=== PATIENT | male | born 1955 | race Caucasian/White ===

== ENCOUNTER → 2016-10-29 | Outpatient (CLI) | payer SELFPAY ==
[~2016-10-29] MED LIST: ALLP100T PO; DILT180C82 PO; FLT05NA16 NSEACH; HCT25T PO; LOSA100T16 PO; [UNRECOGNIZED DRUG - REMARK]
[2016-10-29 11:49] LABS: ALANINE AMINOTRANSFERASE 38 U/L (0-55); ALBUMIN 4.3 G/DL (3.2-4.5); ANION GAP 10 MMOL/L (5-14); ASPARTATE AMINO TRANSFERASE 27 U/L (5-34); BILIRUBIN,TOTAL 1.3 MG/DL (0.1-1.0); BLOOD UREA NITROGEN 22 MG/DL (7-18); BUN/CREATININE RATIO 23; CALCIUM 9.5 MG/DL (8.5-10.1); CARBON DIOXIDE 23 MMOL/L (21-32); CHLORIDE 105 MMOL/L (98-107); CREATININE SERUM 0.95 MG/DL (0.60-1.30); GFR ESTIMATED > 60; GLUCOSE 93 MG/DL (70-105); POTASSIUM 4.3 MMOL/L (3.6-5.0); SODIUM 138 MMOL/L (135-145); TOTAL PROTEIN 7.9 G/DL (6.4-8.2)
[2016-10-29] MEDS: IOHEXOL 350 MG/ML 100 ML (OMNIPAQUE 350) VIAL IV ONE (12:09)
[2016-10-29] MEDS: NS 100 ML (IVPB) BAG IV ONE (12:10)
[2016-10-29] MEDS: CATHETER FLUSH 10 ML SYR IV PRN (12:10)
--- NOTE | 2016-10-29 13:10 | Diagnostic Imaging Report ---
PROCEDURE: CT head with and without contrast. TECHNIQUE: Multiple contiguous axial images were obtained through the brain before and after the administration of intravenous contrast. INDICATION: Headache. 80 mL of Omnipaque 350 is administered intravenously. FINDINGS: The unenhanced phase demonstrates no intracranial hemorrhage. The brain parenchyma demonstrates no edema or mass effect. There is preserved suggs-white matter differentiation. No enhancing mass in the brain or extra-axial space is seen. No ventriculomegaly. The calvarium, and visualized portions of the paranasal sinuses and orbits appear grossly unremarkable. IMPRESSION: Unremarkable exam. No enhancing mass. Dictated by: Dictated on workstation # [id number]
== END | disposition home or self-care (01) ==
LOC: RAD 10:59
PROVIDERS: ATTEND Nurse Practitioner Community Health
DX: R51 Headache (principal)
CPT/HCPCS: 36415; 70470; 80053

== ENCOUNTER → 2020-09-16 | Outpatient (CLI) | payer MEDICARE ==
--- NOTE | 2020-09-16 16:01 | Diagnostic Imaging Report ---
INDICATION: 65-year-old male with osteopenia. COMPARISON: None available. FINDINGS: AP Spine L1-L4: [BMD (g/cm2): 1.066] [T-Score: -1.4] [Z-Score: -1.3] [BMD Previous: na] [BMD % Change: na] LT Hip Neck: [BMD (g/cm2): 0.0903] [T-Score: -1.3] [Z-Score: -0.4] LT Hip Total: [BMD (g/cm2):1.017] [T-Score:-0.6] [Z-Score: -0.2] [BMD Previous: na] [BMD % Change: na] RT Hip Neck: [BMD (g/cm2):0.898] [T-Score:-1.3] [Z-Score:-0.4] RT Hip Total: [BMD (g/cm2):1.004] [T-score:-0.7] [Z-Score:-0.3] [BMD Previous:na] [BMD % Change:na] *Indicates significant change from prior examination based on 95% confidence level. World Health Organization criteria for BMD interpretation classify patients as Normal (T-score at or above -1.0), Osteopenic (T-score between -1.0 and -2.5) or Osteoporotic (T-score at or below -2.5). LIMITATIONS AND MODIFICATION: None. FRACTURE RISK (FRAX SCORE): The ten year probability of (%): Major Osteoporotic Fracture: [5.9] Hip Fracture: [0.9] IMPRESSION: 1. Osteopenia (Low bone mass). 2. Baseline examination. 3. See below National Osteoporosis Foundation guidelines on when to potentially initiate pharmacologic therapy. Based on the National Osteoporosis Foundation Guidelines, pharmacologic treatment should be initiated in any of the following, unless clinical conditions suggest otherwise: * Any patient with prior fragility fracture of the hip or vertebrae. A spine fracture indicates 5X risk for subsequent spine fracture and 2X risk for subsequent hip fracture. * Osteoporosis (T-score <-2.5). * Postmenopausal women and men age 50 and older with low bone mass/osteopenia (T-score between -1.0 and -2.5) by DXA and 10-year major osteoporotic fracture greater than 20% or a 10-year probability of hip fracture greater than 3%. These fracture risks are supplied above in the FRAX score, if applicable. * Clinician judgement and/or patient preferences may indicate treatment for people with 10-year fracture probabilities above or below these levels. Dictated by: Dictated on workstation # [id number]
== END ==
LOC: RAD 13:07
PROVIDERS: ATTEND Nurse Practitioner Family
DX: M85.80 Other specified disorders of bone density and structure, unspecified site (principal); Z91.89 Other specified personal risk factors, not elsewhere classified
CPT/HCPCS: 77080

== ENCOUNTER → 2020-09-30 | Outpatient (CLI) | payer MEDICARE ==
[~2020-09-30] VITALS: Ht 175.3 cm; Wt 89.8 kg
[~2020-09-30] MED LIST changes: +ALLO100T PO; +ASPI-999 PO; +DILT-107 PO; +LOSA100T57 PO; +OMEG-160 PO; +SPIR25TA5 PO
== END | disposition home or self-care (01) ==
LOC: PREOP 05:38
PROVIDERS: ATTEND Surgery
DX: Z01.818 Encounter for other preprocedural examination (principal)

== ENCOUNTER 2020-10-07 07:38 | Day surgery (SDC) | payer MEDICARE, MEDICAID ==
[~2020-10-07] VITALS: Ht 175 cm; Wt 89.0 kg
[2020-10-07] MEDS ORDERED: LACTATED RINGERS 1,000 ML IV ONE (07:46)
[2020-10-07] MEDS ORDERED: LACTATED RINGERS 1,000 ML IV STA (07:47)
[2020-10-07 07:52] VITALS: BP 156/84
[2020-10-07] MEDS ORDERED: MIDAZOLAM 2 MG/2 ML (VERSED) VIAL ONE (08:48)
[2020-10-07] MEDS ORDERED: PROPOFOL INJECTION 0 ML IV ONE (08:48)
[2020-10-07] MEDS ORDERED: PROPOFOL INJECTION 50 ML IV ONE (09:06)
[2020-10-07 09:25] VITALS: BP 125/66
--- NOTE | 2020-10-07 09:27 | Progress Note-Post Operative ---
Post-Operative Progess Note Surgeon (s)/Signal Person (s) Surgeon EVANGELISTA CYR DO Signal Person: na Pre-Operative Diagnosis screening colonoscopy Post-Operative Diagnosis colon polyps Procedure & Operative Findings Date of Procedure 10/07/20 Procedure Performed/Findings colonoscopy c hot bx polypectomy x 2 Anesthesia Type per coding clerks supervisor Estimated Blood Loss Estimated blood loss (mL): minimal Specimens/Packing Specimens Removed ascending and sigmoid colon polyp EVANGELISTA CYR DO October 07, 2020 09:27
--- NOTE | 2020-10-07 09:29 | Discharge Inst-Simple/Standard ---
Discharge Inst-Standard Patient Instructions/Follow Up Plan of Care/Instructions/FU: 2 weeks [facility] Delia Activity as Tolerated: Yes ( ) Discharge Diet: Regular Diet EVANGELISTA CYR DO October 07, 2020 09:29
[2020-10-07 09:30] VITALS: BP 100/55
[2020-10-07 09:35] VITALS: BP 105/66
[2020-10-07 10:00] VITALS: BP 128/94
[2020-10-07 10:05] VITALS: BP 128/94
--- NOTE | 2020-10-07 13:19 | OPERATIVE REPORT ---
DATE OF SERVICE: 10/07/2020 PREOPERATIVE DIAGNOSIS: Screening colonoscopy. POSTOPERATIVE DIAGNOSIS: Colon polyps x2. SURGEON: Evangelista Flannery DO. ANESTHESIA: Per RAND TACKER. PROCEDURE PERFORMED: Colonoscopy with hot biopsy polypectomy x2. INDICATIONS FOR PROCEDURE: The patient is a 65-year-old male needing screening colonoscopy. He understands the risks and benefits and wishes to proceed. Consent was signed in the chart. DESCRIPTION OF PROCEDURE: The patient was taken to the endoscopy suite and placed in the left lateral recumbent position. Timeout was performed. Digital rectal exam was performed. There were no palpable polyps, masses or ulcerations. Scope was inserted in the rectum, advanced all the way to cecum with minimal difficulty. Prep was adequate. There were no polyps, masses or ulcerations in the cecum. Ascending colon polyp was present, which hot biopsy polypectomy was performed. Scope was then continuously retracted back. No polyps, masses or ulcerations within the remainder of the ascending, transverse and descending colon. In the sigmoid colon, a very small polyp was present, which hot biopsy polypectomy was performed. Scope was then continuously retracted back into the rectum, where it was also retroflexed noting no other pathology. Scope was returned to its normal position, slowly withdrawn until completely removed. The patient tolerated the procedure well without any complications. He was taken to the recovery room in a stable condition. RECOMMENDATIONS: The patient was recommended repeat colonoscopy in 3 to 5 years. Any issues before that be seen at that time. Job ID: [id number] DocumentID: [id number] Dictated Date: 10/07/2020 09:31:15 Credit Authorizer Date: 10/07/2020 13:18:17 Dictated By: EVANGELISTA FLANNERY DO
--- NOTE | 2020-10-07 14:46 | Anesthesia-General Post-Op ---
MAC Patient Condition Mental Status/LOC: Same as Preop Cardiovascular: Satisfactory Nausea/Vomiting: Absent Respiratory: Satisfactory Pain: Controlled Complications: Absent Post Op Complications Complications None Follow Up Care/Instructions Patient Instructions None needed. Anesthesiology Discharge Order Discharge Order Patient is doing well, no complaints, stable vital signs, no apparent adverse anesthesia problems. No complications reported per nursing. MARGARITO TARIQ CRNA October 07, 2020 14:46
== END 2020-10-07 10:05 | disposition home or self-care (01) ==
LOC: ENDO 07:38
PROVIDERS: ATTEND Surgery
DX: Z12.11 Encounter for screening for malignant neoplasm of colon (principal); K63.5 Polyp of colon; I10 Essential (primary) hypertension; K21.9 Gastro-esophageal reflux disease without esophagitis; Z79.899 Other long term (current) drug therapy; Z79.02 Long term (current) use of antithrombotics/antiplatelets

== ENCOUNTER → 2021-01-28 | Outpatient (CLI) | payer MEDICARE, MEDICAID ==
--- NOTE | 2021-01-28 15:18 | Diagnostic Imaging Report ---
EXAMINATION: Magnetic resonance imaging of the left knee without intravenous contrast DATE: January 28, 2021. COMPARISON: None. INDICATION: 65-year-old male, left knee pain. TECHNIQUE: Multiplanar, multisequence non contrast enhanced MR imaging was accomplished. FINDINGS: MENISCI: There is an oblique tear involving the anterior horn, body and posterior horn of the medial meniscus extending into the posterior root attachment. There is no current medial meniscal extrusion. The lateral meniscus is intact. LIGAMENTS AND TENDONS: The anterior and posterior cruciate ligaments are intact. The medial collateral ligament is intact. The iliotibial band, mid third lateral capsular ligament, fibular collateral ligament, biceps femoris tendon and conjoined tendon are intact. The quadriceps tendon and patella ligament are intact. JOINT: The articular cartilage surfaces are intact. There is no knee joint effusion, prominent synovitis or intra-articular body. BONE: There is unremarkable bone marrow signal. Specifically, negative for fracture, osteomyelitis, osteonecrosis or marrow replacing process. BURSAE AND SOFT TISSUES: There is minimal fluid in the popliteal fossa without sizable Farmer's cyst. IMPRESSION: 1. Oblique tear involving the anterior horn, body, posterior horn of the medial meniscus extending into the posterior root attachment without current medial meniscal extrusion. 2. Intact lateral meniscus. 3. Intact anterior and posterior cruciate ligaments. Additional ligaments and tendons are intact. 4. No acute fracture, bone contusion or other notable bone marrow signal abnormality. 5. Grossly intact articular cartilage. No knee joint effusion. Dictated by: Dictated on workstation # [id number]
== END ==
LOC: RAD 13:39
PROVIDERS: ATTEND Nurse Practitioner
DX: S83.242A Other tear of medial meniscus, current injury, left knee, initial encounter (principal); X58.XXXA Exposure to other specified factors, initial encounter
CPT/HCPCS: 73721

== ENCOUNTER → 2021-02-05 | Outpatient (CLI) | payer MEDICARE, MEDICAID | LOC: ORTHO 12:46 | PROVIDERS: ATTEND Orthopaedic Surgery | DX: S83.232A Complex tear of medial meniscus, current injury, left knee, initial encounter (principal); X58.XXXA Exposure to other specified factors, initial encounter | CPT/HCPCS: 20610 ==

== ENCOUNTER → 2021-02-26 | Outpatient (CLI) | payer MEDICARE, MEDICAID | LOC: ORTHO 13:30 | PROVIDERS: ATTEND Orthopaedic Surgery | DX: S83.242A Other tear of medial meniscus, current injury, left knee, initial encounter (principal); X58.XXXA Exposure to other specified factors, initial encounter | CPT/HCPCS: 99213 ==

== ENCOUNTER → 2021-07-14 | Outpatient (CLI) | payer MEDICARE, MEDICAID | LOC: CARD 13:00 | PROVIDERS: ATTEND Internal Medicine Cardiovascular Disease | DX: R00.2 Palpitations (principal); R06.09 Other forms of dyspnea | CPT/HCPCS: 36415; 84443; 93225; 93226; 93306 ==

== ENCOUNTER → 2021-07-17 | Outpatient (CLI) | payer MEDICARE, MEDICAID ==
[~2021-07-17] MED LIST changes: +REGADENOSON 0.4 MG/5 ML SYR (LEXISCAN) IV ONE
[2021-07-17] MEDS: CATHETER FLUSH 10 ML SYR IV PRN ×2 (08:08→09:37)
[2021-07-17 09:37] VITALS: BP 177/114
== END ==
LOC: CARD 08:15
PROVIDERS: ATTEND Internal Medicine Cardiovascular Disease
DX: R06.09 Other forms of dyspnea (principal)
CPT/HCPCS: 78452; 93017

== ENCOUNTER → 2022-05-21 | Outpatient (CLI) | payer MEDICARE, MEDICAID ==
[~2022-05-21] MED LIST changes: -REGADENOSON 0.4 MG/5 ML SYR (LEXISCAN) IV ONE
--- NOTE | 2022-05-21 14:57 | Diagnostic Imaging Report ---
Clinical Indication: Patient with neck pain, when he lays down he gets dizzy. Patient has fluid on back and neck. Exam: MRI of the cervical spine performed without IV contrast. Sequences include sagittal T1, sagittal T2, sagittal T2 fat-sat, and axial T2. Comparison: None. Findings: There is no acute cervical spine fracture. There are Modic type I degenerative signal changes posteriorly at the C3-C4 disk space region. There are hypertrophic spurs involving the cervical spine and facet arthropathy. Limited visualization of posterior fossa is unremarkable. Cervical spinal cord is unremarkable. There is no significant paraspinal soft tissue abnormality. C1-C2: There are degenerative spurs involving the atlantoodontoid interval region anteriorly. C2-C3: There is a small annular tear involving the posterior aspect of the disk with no significant disk bulge. There is no significant central spinal canal or neural foramen narrowing. C3-C4: There is grade 1 retrolisthesis of C3 on C4. There is a diffuse disk bulge with moderate loss of disk space height. There are bilateral uncinate spurs. There is mild to moderate central canal stenosis. There is severe bilateral neural foramen narrowing. C4-C5: There is grade 1 retrolisthesis of C4-C5. There is diffuse disk bulge with moderate loss of disk space height. There are posterior bilateral uncinate spurs. There is severe right neural foramen narrowing and moderate to severe left neural foramen narrowing. There is moderate central canal stenosis. C5-C6: There is subtle grade 1 retrolisthesis of C5 on C6. There are bilateral uncinate spurs. There is moderate central canal stenosis. There is severe bilateral neural foramen narrowing. C6-C7: There is diffuse disk bulge with superimposed small right paracentral disk bulge. There is mild to moderate central canal stenosis. There is mild right neural foramen narrowing and moderate to severe left neural foramen narrowing. C7-T1: Unremarkable. IMPRESSION: There is moderate to severe multilevel cervical spine degenerative disk disease, as described above. Dictated by: Dictated on workstation # [id number]
== END ==
LOC: RAD 14:00
PROVIDERS: ATTEND Nurse Practitioner Family
DX: M47.812 Spondylosis without myelopathy or radiculopathy, cervical region (principal); M50.223 Other cervical disc displacement at C6-C7 level; M50.321 Other cervical disc degeneration at C4-C5 level; M48.02 Spinal stenosis, cervical region; M43.12 Spondylolisthesis, cervical region
CPT/HCPCS: 72141